=== PATIENT | female | born 1970 | race American Indian/Alaskan Native ===

== ENCOUNTER 2016-08-01 06:05 | Emergency (ER) | payer OTHER, MEDICAID ==
[2016-08-01 06:21] VITALS: RESP 20; TEMP 98.5
[2016-08-01] MEDS ORDERED: Naproxen 550 mg Tab PO STA (07:19)
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
[2016-08-01] MEDS ORDERED: Naproxen 550 mg Tab PO ONE (07:39)
[2016-08-01 08:37] VITALS: BP 142/81; PULSE 73
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
--- NOTE | 2016-08-01 09:45 | RAD ---
PROCEDURE: Cervical Spine Radiographs. HISTORY: Pain. COMPARISON: None. FINDINGS: BONES: Straightening of the cervical spine which could be due to muscle spasm. No radiographic evidence of acute displaced fracture or subluxation. DISC SPACES: Moderate degenerative disc changes. Large osteophyte formation seen. SOFT TISSUES: Normal. No prevertebral soft tissue swelling. OTHER FINDINGS: None. IMPRESSION: Moderate degenerative changes. Straightening of the cervical spine with out evidence of acute displaced fracture or subluxation.
[2016-08-05 17:15] VITALS: O2SAT 95
== END 2016-08-01 08:37 | disposition home or self-care (01) ==
LOC: C.ER 06:05
DX: S13.9XXA Sprain of joints and ligaments of unspecified parts of neck, initial encounter (principal); R07.89 Other chest pain; V43.62XA Car passenger injured in collision with other type car in traffic accident, initial encounter; Y92.410 Unspecified street and highway as the place of occurrence of the external cause